=== PATIENT | male | born 1995 | race Caucasian/White ===

== ENCOUNTER 2020-09-15 16:17 | Emergency (ER) | payer MEDICAID ==
[~2020-09-15] VITALS: Ht 182.9 cm; Wt 66.7 kg
--- NOTE | 2020-09-15 16:17 | NUR ---
PT BIB SELF C/O HEAD PAIN & LOWER BACK PAIN S/P FALL FROM A 15FT TREE, PER PATIENT +LOC. PT IS AAXOX4, NOT IN RESPIRATORY DISTRESS, V/S STABLE, KEPT RESTED AND COMFORTABLE. WILL CONTINUE TO MONITOR.
--- NOTE | 2020-09-15 16:49 | NUR ---
PT SEEN AND EXAMINED BY ENA CASILLAS.
[2020-09-15] MEDS ORDERED: HYDROCODONE/APAP 5/325MG TABLET ONE (16:57)
--- NOTE | 2020-09-15 16:57 | NUR ---
PT IS WHEELED TO CT SCAN VIA [facility].
[2020-09-15] MEDS ORDERED: HYDROCODONE/APAP 5/325MG TABLET PO ONE (17:00)
[2020-09-15] MEDS ORDERED: HYDR-4209 PO (18:21)
[2020-09-15] MEDS ORDERED: IBUP-1955 PO (18:21)
--- NOTE | 2020-09-15 18:25 | NUR ---
LEFT VOICEMAIL FOR CENTRAL SUPPLY FOR BACK BINDER/BRACE
[2020-09-15] MEDS ORDERED: BACK1EAC12 MC (19:04)
--- NOTE | 2020-09-15 19:08 | NUR ---
6 INCH FANNY WRAP APPLIED TO THE LOWER BACK.
[2020-09-15 19:10] VITALS: BP 120/64
--- NOTE | 2020-09-15 19:10 | NUR ---
Patient discharged to home in stable condition. Written and verbal after care instructions given. Patient verbalizes understanding of instruction.
== END 2020-09-15 19:19 | disposition home or self-care (01) ==
LOC: ER 16:17
DX: S32.018A Other fracture of first lumbar vertebra, initial encounter for closed fracture (principal); S30.0XXA Contusion of lower back and pelvis, initial encounter; S09.8XXA Other specified injuries of head, initial encounter; Z60.2 Problems related to living alone; W14.XXXA Fall from tree, initial encounter; Y93.89 Activity, other specified; Y92.89 Other specified places as the place of occurrence of the external cause; Y99.8 Other external cause status
CPT/HCPCS: 70450-TC; 72125-TC; 72131-TC